=== PATIENT | female | born 1995 | race American Indian/Alaskan Native ===

== ENCOUNTER 2018-03-12 15:02 | Emergency (ER) | payer BC, MEDICAID ==
[2018-03-12] MEDS ORDERED: NACL 0.9% 1000 ML 1,000 ML IV ONE (15:46)
[2018-03-12 16:12] LABS: Basophils # (Auto) 0.1 K/mm3 (0.0-0.1); Basophils % (Auto) 0.8 % (0.0-1.8); Eosinophils # (Auto) 0.4 K/mm3 (0.0-0.4); Eosinophils % (Auto) 4.1 % (0.0-4.3); Hematocrit 36.4 % (30.3-42.9); Hemoglobin 11.6 gm/dl (10.1-14.3); Lymphocytes # (Auto) 1.5 K/mm3 (1.2-5.4); Lymphocytes % (Auto) 16.7 % (13.4-35.0); Mean Corpuscular HGB Conc 32 % (30-34); Mean Corpuscular Volume 72 fl (79-97); Monocytes # (Auto) 0.5 K/mm3 (0.0-0.8); Monocytes % (Auto) 5.9 % (0.0-7.3); Platelet Count 268 K/mm3 (140-440); Red Cell Distribution Width 15.7 % (13.2-15.2)
[2018-03-12 16:59] LABS: BUN/Creatinine Ratio 10; Blood Urea Nitrogen 5 mg/dL (7-17); Calcium 8.9 mg/dL (8.4-10.2); Hemolysis Index 7
[2018-03-12 17:15] LABS: Bacteria,Urine 1+ /HPF (Negative); Bilirubin,Urine NEG (Negative); Blood,Urine LG (Negative); Color,Urine Straw (Yellow); Protein,Urine <15 mg/dL mg/dL (Negative); RBC,Urine < 1.0 /HPF (0.0-6.0); Urobilinogen,Urine < 2.0 mg/dL (<2.0)
--- NOTE | 2018-03-12 18:42 | Emergency Department Report ---
ED General Adult HPI - General Chief complaint: OB/Uterine Contractions Stated complaint: POSS MISCARRIAGE Time Seen by Provider: 03/12/18 15:43 Source: patient Mode of arrival: Stretcher Limitations: No Limitations - History of Present Illness Initial comments: This is a 22-year-old female who states she is 17 weeks . The patient is 2 para 0 with one spontaneous miscarriage in the past. She states that she is followed by 2 clinics because she is "high risk". She states that she had an ultrasound done 3 weeks ago and was found to be 15 weeks. She came to the emergency department today because she had fluid and slight blood per v agina. She has no ongoing bleeding. She is not complaining of abdominal pain. She does not know her blood type. -: Sudden Associated Symptoms: denies other symptoms - Related Data Allergies Allergy/AdvReac Type Severity Reaction Status Date / Time Penicillins AdvReac Rash Verified 03/12/18 15:41 ED Review of Systems ROS: Stated complaint: POSS MISCARRIAGE Other details as noted in HPI Constitutional: denies: chills, fever Eyes: denies: eye pain, eye discharge, vision change ENT: denies: ear pain, throat pain Respiratory: denies: cough, shortness of breath, wheezing Cardiovascular: denies: chest pain, palpitations Endocrine: no symptoms reported Gastrointestinal: denies: abdominal pain, nausea, diarrhea Genitourinary: as per HPI. denies: urgency, dysuria, discharge Musculoskeletal: denies: back pain, joint swelling, arthralgia Skin: denies: rash, lesions Neurological: denies: headache, weakness, paresthesias Psychiatric: denies: anxiety, depression Hematological/Lymphatic: denies: easy bleeding, easy bruising ED Past Medical Hx - Past Medical History Previous Medical History?: No - Surgical History Past Surgical History?: No - Social History Smoking Status: Never Smoker Substance Use Type: None ED Physical Exam - General Limitations: No Limitations General appearance: alert, in no apparent distress - Head Head exam: Present: atraumatic, normocephalic - Eye Eye exam: Present: normal appearance. Absent: scleral icterus - ENT ENT exam: Present: mucous membranes moist - Neck Neck exam: Present: normal inspection. Absent: tenderness, meningismus - Respiratory Respiratory exam: Present: normal lung sounds bilaterally. Absent: respiratory distress - Cardiovascular Cardiovascular Exam: Present: regular rate, normal rhythm. Absent: systolic murmur, diastolic murmur, rubs, gallop - GI/Abdominal GI/Abdominal exam: Present: soft, normal bowel sounds, other (abdomen is consis tent with gestational age. Uterus appears to be about 2 fingerbreadths below the umbilicus. heart tones were found by the nurse and estimated to be normal although they were unable to count.). Absent: distended, tenderness, guarding, rebound, rigid - Extremities Exam Extremities exam: Present: normal inspection - Back Exam Back exam: Present: normal inspection - Neurological Exam Neurological exam: Present: alert, oriented X3, CN II-XII intact. Absent: motor sensory deficit - Psychiatric Psychiatric exam: Present: normal affect, normal mood - Skin Skin exam: Present: warm, dry, intact, normal color. Absent: rash ED Course Vital Signs 03/12/18 03/12/18 15:38 16:30 Pulse Rate 68 Respiratory 16 16 Rate Blood Pressure 112/59 O2 Sat by Pulse 98 100 Oximetry ED Medical Decision Making - Lab Data Result diagrams: 03/12/18 15:53 03/12/18 15:53 Laboratory Results - last 24 hr 03/12/18 03/12/18 03/12/18 15:53 15:53 15:53 WBC 9.2 RBC 5.10 H Hgb 11.6 Hct 36.4 MCV 72 L MCH 23 L MCHC 32 RDW 15.7 H Plt Count 268 Lymph % (Auto) 16.7 [place] % (Auto) 5.9 Eos % (Auto) 4.1 Baso % (Auto) 0.8 Lymph # 1.5 [place] # 0.5 Eos # 0.4 Baso # 0.1 Seg Neutrophils % 72.5 H Seg Neutrophils # 6.6 Sodium 138 Potassium 3.9 Chloride 103.0 Carbon Dioxide 24 Anion Gap 15 BUN 5 L Creatinine 0.5 L Estimated GFR > 60 BUN/Creatinine Ratio 10 Glucose 84 Calcium 8.9 HCG, Quant 9450 H Urine Color Urine Turbidity Urine pH Ur Specific [place] Urine Protein Urine Glucose (UA) Urine Ketones Urine Blood Urine Nitrite Urine Bilirubin Urine Urobilinogen Ur Leukocyte Esterase Urine WBC (Auto) Urine RBC (Auto) U Epithel Cells (Auto) Urine Bacteria (Auto) Blood Type Antibody Screen 03/12/18 03/12/18 15:53 16:41 WBC RBC Hgb Hct MCV MCH MCHC RDW Plt Count Lymph % (Auto) [place] % (Auto) Eos % (Auto) Baso % (Auto) Lymph # [place] # Eos # Baso # Seg Neutrophils % Seg Neutrophils # Sodium Potassium Chloride Carbon Dioxide Anion Gap BUN Creatinine Estimated GFR BUN/Creatinine Ratio Glucose Calcium HCG, Quant Urine Color Straw Urine Turbidity Clear Urine pH 8.0 H Ur Specific [place] 1.003 Urine Protein <15 mg/dl Urine Glucose (UA) Neg Urine Ketones Neg Urine Blood Lg Urine Nitrite Neg Urine Bilirubin Neg Urine Urobilinogen < 2.0 Ur Leukocyte Esterase Tr Urine WBC (Auto) 2.0 Urine RBC (Auto) < 1.0 U Epithel Cells (Auto) < 1.0 Urine Bacteria (Auto) 1+ Blood Type O POSITIVE Antibody Screen Negative - Radiology Data interpreted by me: Discussed ultrasound findings with the tach. There is decreased amniotic fluid and a short cervix. heart rate was 150-160. There was limited movement. Gestational age was 17 weeks 5 days. Critical care attestation.: If time is entered above; I have spent that time in minutes in the direct care of this critically ill patient, excluding procedure time. ED Disposition Clinical Impression: Threatened Oligohydramnios Qualifiers: Fetus number: single or unspecified fetus Trimester: second trimester Qualified Code(s): O41.02X0 - Oligohydramnios, second trimester, not applicable or unspecified Disposition: DC-01 TO HOME OR SELFCARE Is pt being admited?: No Does the pt Need Aspirin: No Condition: Stable Instructions: Threatened Miscarriage (ED) Additional Instructions: Rest. Return to the emergency department any significant bleeding or acute change or problem. See your OB physician tomorrow for further care and treatment. Referrals: usual, OB physicians [Other] - 24 Hours Time of Disposition: 19:15
--- NOTE | 2018-03-12 19:15 | Ultrasound Report ---
FINAL REPORT PROCEDURE: Obstetrical ultrasound. TECHNIQUE: Real-time transabdominal sonography of the uterus, placenta, amniotic fluid, adnexa, and fetus was performed with image documentation. Measurements were obtained to determine age/size. M-mode Doppler was used to document heartbeat. CPT 51466 HISTORY: Vaginal bleeding at approximately 17 weeks . COMPARISON: No prior studies are available for comparison. FINDINGS: There is a single viable fetus in cephalic presentation. Cardiac activity is documented at 162 beats per minute. The cervix appears short, measuring only 1.7 centimeters in length. The amniotic fluid vo lume is decreased. The placenta is posterior in location without signs of placenta previa. The measur ed parameters are as follows: Biparietal diameter 3.8 centimeters, head circumference 13.9 cent imeters, abdominal circumference 12.2 centimeters, femur length 2.6 centimeters. The calculated menst rual age is 17 weeks 5 days. The estimated date of confinement is 08/15/2018. IMPRESSION: Oligohydramnios. Viable fetus in cephalic presentation with a menstrual age of 17 weeks 5 days.
[2018-03-12 23:26] VITALS: BP 108/61
== END 2018-03-12 20:05 | disposition home or self-care (01) ==
LOC: ED 15:02
DX: O20.0 Threatened abortion (principal); O41.02X0 Oligohydramnios, second trimester, not applicable or unspecified; Z88.0 Allergy status to penicillin; Z3A.17 17 weeks gestation of pregnancy
CPT/HCPCS: 36415; 76805; 80048; 81001; 84702; 85025; 86850; 86900; 86901; 99284; J7030

== ENCOUNTER 2019-09-16 05:24 | Emergency (ER) | payer MEDICAID ==
[2019-09-16 05:35] VITALS: BP 120/68
[2019-09-16 06:55] LABS: Basophils % (Auto) 0.3 % (0.0-1.8); Eosinophils # (Auto) 0.1 K/mm3 (0.0-0.4); Eosinophils % (Auto) 1.1 % (0.0-4.3); Hematocrit 34.6 % (30.3-42.9); Hemoglobin 11.1 gm/dl (10.1-14.3); Lymphocytes # (Auto) 1.4 K/mm3 (1.2-5.4); Mean Corpuscular HGB Conc 32 % (30-34); Mean Corpuscular Volume 73 fl (79-97); Monocytes % (Auto) 9.6 % (0.0-7.3); Platelet Count 281 K/mm3 (140-440); Red Blood Count 4.75 M/mm3 (3.65-5.03); Red Cell Distribution Width 15.7 % (13.2-15.2)
--- NOTE | 2019-09-16 07:32 | Emergency Department Report ---
ED Female HPI - General Chief complaint: Vaginal Bleeding Stated complaint: 18WKS PREG/VAGINAL BLEEDIN Time Seen by Provider: 09/16/19 07:10 Source: patient Mode of arrival: Ambulatory Limitations: No Limitations - History of Present Illness Initial comments: 24-year-old female currently 18 weeks presents to the hospital clearly with vaginal bleeding since this morning. Patient noticed vaginal bleeding with small clots. She currently has 1 pad on with continued mild bleeding. She complains of lower abdominal discomfort without cramping. Patient last had sexual intercourse last night. This is patient's third . She has 2 p revious miscarriages at 18 weeks and 16 weeks gestation secondary to incompetent cervix. She is scheduled in 2 days to see a specialist to determine if she needs a cervical cerclage. Her [employer] doctor is Dr. Pratt associated with [employer] who apparently deliver at [place] - Related Data Allergies Allergy/AdvReac Type Severity Reaction Status Date / Time Penicillins AdvReac Rash Verified 03/12/18 15:41 ED Review of Systems ROS: Stated complaint: 18WKS PREG/VAGINAL BLEEDIN Other details as noted in HPI Comment: All other systems reviewed and negative ED Past Medical Hx - Past Medical History Previous Medical History?: No - Surgical History Past Surgical History?: No - Social History Smoking Status: Never Smoker Substance Use Type: None ED Physical Exam - General Limitations: No Limitations - Other Other exam information: General: No acute distress Head: Atraumatic Eyes: normal appearance ENT: Moist mucous membranes Neck: Normal appearance, no midline tenderness Chest: Clear to auscultation bilaterally CV: Regular rate and rhythm Abdomen: Soft, normal bowel sounds, gravid abdomen with uterus below the umbilicus nontender to palpation Back: Normal inspection Extremity: Normal inspection, full range of motion Neuro: Alert O x 3, no facial asymmetry, speech clear, no gross motor sensory deficit Psych: Appropriate behavior Skin: No rash ED Course Vital Signs 09/16/19 05:34 Temperature 98.3 F Pulse Rate 97 H Respiratory 12 Rate Blood Pressure 120/68 O2 Sat by Pulse 100 Oximetry - Reevaluation(s) Reevaluation #1: 09/16/19 09:42 I was going to attempt to call Dr. Pratt but patient no longer wants to wait for me to speak to her physicians and wants to leave the department. - Consultations Consultation #1: 09/16/19 09:00 Case discussed with on-call [employer]IP[employer] Dr. Rodriguez who advises pelvic rest and follow- up with her doctor 09/16/19 09:[address] Braun with group [id number]. Advised the patient to keep her current appointment as scheduled and to also speak to her primary OB ED Medical Decision Making - Lab Data Result diagrams: 09/16/19 05:41 Lab Results 09/16/19 09/16/19 09/16/19 Range/Units 05:41 05:41 06:39 WBC 10.7 (4.5-11.0) K/mm3 RBC 4.75 (3.65-5.03) M/mm3 Hgb 11.1 (10.1-14.3) gm/dl Hct 34.6 (30.3-42.9) % MCV 73 L (79-97) fl MCH 23 L (28-32) pg MCHC 32 (30-34) % RDW 15.7 H (13.2-15.2) % Plt Count 281 (140-440) K/mm3 Lymph % (Auto) 13.0 L (13.4-35.0) % [place] % (Auto) 9.6 H (0.0-7.3) % Eos % (Auto) 1.1 (0.0-4.3) % Baso % (Auto) 0.3 (0.0-1.8) % Lymph # 1.4 (1.2-5.4) K/mm3 [place] # 1.0 H (0.0-0.8) K/mm3 Eos # 0.1 (0.0-0.4) K/mm3 Baso # 0.0 (0.0-0.1) K/mm3 Seg Neutrophils % 76.0 H (40.0-70.0) % Seg Neutrophils # 8.2 H (1.8-7.7) K/mm3 HCG, Quant 83813 H (0-4) mIU/mL Blood Type O POSITIVE - Medical Decision Making Patient presenting with a threatened miscarriage. O+ blood type does not require RhoGam. Incompetent cervix with dilated as. Patient at risk for miscarriage I spoke to on-call OB here as well as a doctor from the clinic where she is to follow-up on Monday. Patient did not want to wait for me to speak to Dr. Pratt. Pelvic rest encouraged. Patient provided lab work and imaging results for follow-up Critical Care Time: No Critical care attestation.: If time is entered above; I have spent that time in minutes in the direct care of this critically ill patient, excluding procedure time. ED Disposition Clinical Impression: Threatened , Incompetent cervix in Disposition: - TO HOME OR SELFCARE Is pt being admited?: No Does the pt Need Aspirin: No Condition: Stable Instructions: Threatened Miscarriage (ED), Incompetent Cervix (ED) Additional Instructions: Pelvic rest is advised. No sex, heavy lifting, or strenuous activity. Follow- up with your doctor as scheduled on Monday. Take the copy of your results to your doctor visit. Return if symptoms worsen as indicated by your discharge instructions. Referrals: Your, [employer] doctor [Other] - 09/18/19 Time of Disposition: 09:45
--- NOTE | 2019-09-16 07:57 | Ultrasound Report ---
OB ULTRASOUND <= 14 WEEKS FETUS INDICATION: VAG BLEEDING COMPARISON: None FINDINGS: A single gestation intrauterine is present with breech presentation. The placenta is trauma surgeon ior, grade 0 and free of the cervical os. No abruption is appreciated. heart tones measure 135 bpm. The cervix appears to be open on translabial imaging with measurements ranging from 1.9-3.5 cm in tomas meter. There appears to be echogenic debris or amniotic fluid/membranes protruding into the cervical canal. Qualitative amniotic fluid volume appears within normal limits. HUSAM was not measured. anatomical survey was not performed. Biparietal diameter is 3.8 cm which equals 17 weeks 4 days. Head circumference is 14.6 cm which equals 17 weeks 6 days. Abdominal circumference is 12.6 cm which equals 18 weeks 2 days. Femur length is 2.8 cm which equals 18 weeks 4 days. Overall estimated sonographic age is 18 weeks 1 day. Estimated due date 02/16/2020. HC/AC ratio: 1.2 Cephalic index: 77.9 Estimated weight 232 g. IMPRESSION: Viable, single intrauterine . The cervix is partially open as described above. No acute abnormality is detected. Signer Name: Dwight Bailey Jr, MD Signed: 09/16/2019 7:53 AM Workstation Name: [id number]
== END 2019-09-16 09:54 | disposition home or self-care (01) ==
LOC: ED 05:24
DX: O20.0 Threatened abortion (principal); O34.32 Maternal care for cervical incompetence, second trimester; Z88.0 Allergy status to penicillin; Z3A.18 18 weeks gestation of pregnancy
CPT/HCPCS: 36415; 76801; 84702; 85025; 86900; 86901